=== PATIENT | female | born 1950 | race Two or more races ===

== ENCOUNTER 2017-10-14 21:48 | Emergency (ER) | payer OTHER ==
[~2017-10-14] VITALS: Ht 172.7 cm; Wt 95.3 kg
[2017-10-14 21:59] VITALS: BP 149/75
[2017-10-14 23:09] LABS: APPEARANCE,URINE CLEAR (CLEAR); BILIRUBIN,URINE NEGATIVE (NEGATIVE); BLOOD, URINE TRACE Ery/uL (NEGATIVE); COLOR,URINE YELLOW (YELLOW); KETONES,URINE 1+ (NEGATIVE); LEUKOCYTE ESTERASE ,URINE NEGATIVE (NEGATIVE); NITRITE, URINE NEGATIVE (NEGATIVE); PH,URINE 5.5 (5.0-8.0); PROTEIN,URINE NEGATIVE (NEGATIVE); UGLUCOSE 3+ mg/dL (NEGATIVE); UROBILINOGEN,URINE 0.2 EU/dL (0.2)
[2017-10-14 23:19] LABS: BACTERIA,URINE Few /HPF (None Seen); RBC,URINE 0-2 /HPF (0-2); SQUAMOUS EPITHELIAL CELL,UR Few /HPF (None Seen)
== END 2017-10-14 23:45 | disposition home or self-care (01) ==
LOC: ER 21:53
DX: B37.3 Candidiasis of vulva and vagina (principal); B35.9 Dermatophytosis, unspecified; I10 Essential (primary) hypertension
CPT/HCPCS: 81000-TC; A4606; Z7610